=== PATIENT | female | born 1970 | race Caucasian/White ===

== ENCOUNTER 2025-02-22 15:26 | Day surgery (SDC) | payer BC ==
[2025-02-22] MEDS: FERRIC CARBOXYMALTOSE 750 MG in SODIUM CHLORIDE 250 ML IVPB ONE (16:15)
[2025-02-22 17:14] VITALS: BP 123/80; PULSE 66; RESP 17; TEMP 98.4
== END 2025-02-22 16:55 | disposition home or self-care (01) ==
LOC: FINFUSION 15:26 → FM/S 15:27 → FINFUSION 16:55
PROVIDERS: ATTEND Family Medicine
PROC: 3E033GC Introduction of Other Therapeutic Substance into Peripheral Vein, Percutaneous Approach (ICD-10-PCS; principal; 2025-02-22)
DX: D50.9 Iron deficiency anemia, unspecified (principal)
CPT/HCPCS: 96365; J1439